=== PATIENT | female | born 1970 | race Hispanic/Latino ===

== ENCOUNTER 2020-01-25 19:35 | Observation (INO) | payer OTHER, SELFPAY ==
[2020-01-25] MEDS ORDERED: HYDROcodone/Acetaminophen 10/325 mg Tablet PO PRN (20:47)
[2020-01-25] MEDS ORDERED: Morphine 4 MG/ML VIAL SLOW IVP PRN (20:47)
[2020-01-25] MEDS ORDERED: Senokot S 8.6-50 MG TAB PO PRN (20:51)
[2020-01-25] MEDS ORDERED: Acetaminophen 325 MG TAB PO PRN (20:51)
[2020-01-25] MEDS ORDERED: Acetaminophen 650 MG Suppository PR PRN (20:51)
[2020-01-25] MEDS ORDERED: Dextrose 5% in Water 1,000 ML IV PRN (20:52)
[2020-01-25] MEDS ORDERED: HumaLOG 300 UNITS/3 ML VIAL SC PRN ×2 (20:52)
[2020-01-25] MEDS ORDERED: Dextrose 50% Abboject 50 ML SYRINGE SLOW IVP PRN (20:52)
[2020-01-25] MEDS ORDERED: Famotidine 20 MG TAB PO SCH (22:00)
[2020-01-25 22:20] VITALS: BMI 27.3
[2020-01-25] MEDS ORDERED: Ketorolac Tromethamine 30 MG/ML VIAL IVP SCH (23:59)
[2020-01-26] MEDS ORDERED: Ketorolac Tromethamine 30 MG/ML VIAL IVP SCH (00:15)
--- NOTE | 2020-01-26 00:27 | PDOC.HHP ---
Hospitalist HPI - History of Present Illness Right flank pain History of Present Illness: Patient presented to the ED today with complaints of left flank pain that has been persisting for the last 2 weeks and gradually worsening. She has had more frequent chills and occasionally febrile at home. States she was told in the past that she had a kidney stone but never did anything for it. Since then she has had occasional left flank pain with associated fever/chills that come and goes on its own. Recently however the pain has been more severe/persistent. She was seen for follow-up of her diabetes 2 weeks ago and told she had blood in the urine. She has not noted in [place] hematuria. Reports having a renal ultrasound 01/17/2020 and told she had a stone which she knew from prior imaging. The last medication she received as Toradol 30 mg IV which she states has made her drowsy but has taken her pain down to a 2/10 in severity. The pain is non-radiating. She denies any associated nausea or vomiting. All other review of systems are negative apart from those mentioned above in HPI. ED COURSE: Today she presented to [place] [facility]. She states her pain was initially a 9/10 in severity. She was hypotensive in the ED with systolic BP ranging from 89-112 and DBP 49-67. She received 2 L of NS and 15 mg of Toradol IV. She had a CT stone protocol done showing partial/intermittent obstruction at a 1.8cm right renal pelvis calculus. Also present was a hemorrhagic right ovarian cyst measuring 3.5 cm and hepato-steatosis. Diverticulosis without diverticulitis. UA showed 100 protein, 500 glucose, large blood, small leukocyte esterase, >50 RBC, 21-50 WBC, 4-6 squamous epithelial cells. WCC 7.3, Hgb 12.8, Hct 39.7, Platelets 653. K+ 3.6, BUN 20, Creat 0.76, GFR 81. LFTs normal. Lipase normal. Serum test negative. PAST MEDICAL HISTORY: 1. Nephrolithiasis. 2. Diabetes mellitus. 3. Hypertriglyceridemia, controlled with diet. 4. Diverticulitis. PAST SURGICAL HISTORY: Cholecystectomy. SOCIAL HISTORY: Fully independent. Denies any tobacco use, alcohol consumption or drug use. She did smoke previously. FAMILY HISTORY: Noncontributory. ALLERGIES: No known drug allergies. CURRENT MEDICATIONS: 1. Metformin. 2. Glipizide. 3. Lisinopril. (states this is not for hypertension, but to protect her kidneys). Hospitalist ROS - Medication Medications: Active Medications Generic Name Dose Route Start Last Admin Trade Name Leo PRN Reason Stop Dose Admin Insulin Human Lispro 0 units 01/25/20 20:52 01/25/20 21:56 Humalog 300 Units/3 Ml Vial SC 2 unit .BEDTIME SLIDING SC PRN Administration Bedtime Correctional Scale - Exam General Appearance: NAD, awake alert General - other findings: VS: Temp 98, HR 86, BP 102/62, RR 16, O2 sat 97% on RA. Eye: PERRL, anicteric sclera ENT: normocephalic atraumatic, moist mucosa Neck: supple, symmetric, no lymphadenopathy Heart: RRR, normal peripheral pulses Respiratory: CTAB, no wheezes, no rales, normal chest expansion Gastrointestinal: soft, non-distended, normal bowel sounds, no guarding, tender to palpation (right flank) Extremities: no edema Skin: normal turgor, no lesions, no rashes Neurological: cranial nerve grossly intact, normal sensation to touch, no weakness, no focal deficits Musculoskeletal: normal tone, normal strength, no muscle wasting Psychiatric: normal affect, normal behavior, A&O x 3 Psychiatric - other findings: sleepy but woken easily and answering questions. Stayed awake. Hospitalist Results - Radiology Interpretation CT scan - abdomen Status: report reviewed by me Hospitalist H&P A/P - Problem (1) Right nephrolithiasis Code(s): N20.0 - CALCULUS OF KIDNEY Status: Acute Assessment and Plan: Patient discussed with Dr. Kumar, per ED, and recommended admission with plans for ureteral placement in the AM. Monitor renal function. Pain free at present. Keep NPO after midnight. (2) Hypotension Status: Acute Assessment and Plan: Start IV fluids at 75 mLs/Hr NS. Monitor BP. (3) Right flank pain Code(s): R10.9 - UNSPECIFIED ABDOMINAL PAIN Status: Acute Assessment and Plan: Significantly improved. Continue Toradol. Decreased from 30 mg to 15 mg IV, given complaints of drowsiness. (4) Diabetes mellitus Code(s): E11.9 - TYPE 2 DIABETES MELLITUS WITHOUT COMPLICATIONS Status: Chronic Assessment and Plan: Monitor glucose. ISS initiated. (5) Hypertriglyceridemia Code(s): E78.1 - PURE HYPERGLYCERIDEMIA Status: Chronic Assessment and Plan: Low fat diet once cleared to eat. - Plan Plan: GI prophylaxis with famotidine. FULL CODE STATUS Surrogate decision maker is her sister Avani Shepherd.
[2020-01-26] MEDS ORDERED: Sodium Chloride 0.9% 1,000 ML IV SCH (00:30)
[2020-01-26] MEDS: Ketorolac Tromethamine 30 MG/ML VIAL IVP SCH ×2 (05:27→12:30)
[2020-01-26 05:42] LABS: #Eosinphils 0.1 thou/uL (0.0-0.7); #Lymphocytes 2.2 thou/uL (1.20-3.40); #Monocytes 0.5 thou/uL (0.11-0.59); #Neutrophils 2.3 thou/uL (1.40-6.50); %Eosinophils 2.9 % (0.0-10.0); %Lymphocytes 43.1 % (21.0-51.0); %Neutrophils 44.1 % (42.0-75.0); Hemoglobin 11.3 g/dL (12.0-16.0); Mean Corpuscular HGB CONC 37.5 g/dL (32.0-36.0); Mean Corpuscular Hemoglobin 37.8 pg (27.0-31.0); Mean Platelet Volume 9.2 fL (7.4-10.4); Platelet Count 238 thou/uL (130-400); RBC Distribution Width 13.6 % (11.5-14.5); White Blood Cell (WBC) Count 5.1 thou/uL (4.8-10.8)
[2020-01-26 08:00] LABS: Calcium 7.9 mg/dL (7.8-10.44); Chloride 109 mmol/L (98-107); Sodium 137 mmol/L (136-145)
[2020-01-26 08:01] LABS: Glucose 140 mg/dL (70-105)
[2020-01-26 08:02] LABS: Anion Gap 10 mmol/L (10-20); Carbon Dioxide 22 mmol/L (22-29)
[2020-01-26 08:04] LABS: Calc. Creatinine Clearance 123 mL/min (70-130); Estimated GFR-MDRD Greater than 90
[2020-01-26 08:05] LABS: BUN (Urea Nitrogen) 15 mg/dL (7.0-18.7)
--- NOTE | 2020-01-26 08:05 | CON ---
DATE OF CONSULTATION: 01/26/2020 CHIEF COMPLAINT: Right flank pain. REASON FOR CONSULTATION: Right renal stone. HISTORY OF PRESENT ILLNESS: This is a 49-year-old female who developed acute onset severe right-sided flank pain over the last 24 hours or so. This reached up to 10/10, associated with nausea, but no vomiting. She was seen at her local emergency room, where a CT scan showed a large right renal stone with hydronephrosis. She was then transferred to [place] for management. In speaking with her this morning, she reports that her pain has been intermittent overnight; however, this morning seems to be worsening again. She does tell me that she has been having intermittent right-sided flank pain much less severe over the past several months. This morning, she denies dysuria, gross hematuria, fevers, or nausea. No prior history of stones. PAST MEDICAL HISTORY: Diabetes, elevated triglycerides, and diverticulitis. PAST SURGICAL HISTORY: Cholecystectomy. SOCIAL HISTORY: From [place], lives in [place] with her son, nonsmoker, no substance abuse. FAMILY HISTORY: Reviewed, noncontributory. No history of stones. ALLERGIES: NO KNOWN DRUG ALLERGIES. CURRENT MEDICATIONS: 1. Metformin. 2. Glipizide. 3. Lisinopril. REVIEW OF SYSTEMS: A 12-point review of systems is negative except as mentioned in my HPI. PHYSICAL EXAMINATION: VITAL SIGNS: Afebrile, vitals stable. No urine output recorded yet. GENERAL: No acute distress. Conversant. HEENT: Head, normocephalic and atraumatic. Extraocular movements intact. Sclerae nonicteric. NECK: Supple. Trachea midline. Unlabored breathing. Symmetric chest expansion. HEART: Regular rate and rhythm. ABDOMEN: Soft, nontender, and nondistended. No flank tenderness. No suprapubic tenderness. SKIN: Warm and dry. EXTREMITIES: No peripheral edema or cyanosis. NEUROLOGIC: Alert and oriented x3. PSYCHIATRIC: Normal mood and affect. LABORATORY DATA: Reviewed. White count this morning is 5.1. BMP has not yet returned this morning. Creatinine yesterday was 0.76. test negative. COVID-19 pending. IMAGING DATA: I personally reviewed her CT scan, which does show a large 1.8 cm right renal pelvis stone. ASSESSMENT AND PLAN: Right renal pelvis stone, hydronephrosis. Given that her pain was poorly controlled in the emergency room, she has been transferred to [place] and is having intermittent pain still. We discussed her options and have decided together to proceed to the operating room for ureteroscopy with laser lithotripsy of this stone. I explained the procedure in detail including the expected postoperative course and the risks of bleeding, infection, pain, and inability to access or clear the stone entirely, possible need for a second procedure to completely clear the stone, formation of ureteral stricture or ureteral injury during the procedure. She does understand this is a very large stone and could require two trips to the operating room to treat properly. I also made sure that she understands that she will have a stent afterwards that will have to be removed. All of her questions were answered. Job ID: [id number] [facility]ICAL CENTERJohn
[2020-01-26] MEDS ORDERED: Famotidine 20 MG TAB PO SCH (09:00)
[2020-01-26] MEDS ORDERED: Lisinopril 5 MG TAB PO SCH (09:00)
[2020-01-26] MEDS ORDERED: Ondansetron PF 4 MG/2 ML Vial ONE (11:29)
[2020-01-26] MEDS ORDERED: Rocuronium Bromide 10 MG/ML (10ML VIAL) ONE (11:29)
[2020-01-26] MEDS ORDERED: Glycopyrrolate 0.2 MG/ML 5 ML SYRINGE ONE (11:29)
[2020-01-26] MEDS ORDERED: Lidocaine 1% PF 5 ML VIAL ONE (11:29)
[2020-01-26] MEDS ORDERED: Dexamethasone 20 MG/5 ML VIAL ONE (11:29)
[2020-01-26] MEDS ORDERED: PROPOFOL 200 MG/20 ML VIAL ONE (11:29)
[2020-01-26] MEDS ORDERED: Iothalamate Meglumine 60% 50 ML VIAL FS ONE (12:38)
[2020-01-26 12:57] LABS: SARS-CoV-2 MS2 Positive; SARS-CoV-2 N Gene Negative; SARS-CoV-2 S Gene Negative; SARS-CoV-2 by NAA Not Detected (NotDetected); SARS-CoV-2 orf1ab Negative
[2020-01-26] MEDS ORDERED: Fentanyl 100 MCG/2 ML VIAL ONE (13:34)
[2020-01-26] MEDS ORDERED: Midazolam HCl 2 mg/2 ml Vial ONE (13:34)
[2020-01-26] MEDS ORDERED: Ondansetron HCl/PF 4 MG/2 ML Vial IVP PRN (14:53)
[2020-01-26] MEDS ORDERED: Promethazine HCl 25 MG/ML VIAL IM PRN (14:53)
[2020-01-26] MEDS ORDERED: Promethazine HCl 25 MG/ML VIAL SLOW IVP PRN (14:53)
--- NOTE | 2020-01-26 14:59 | RAD ---
EXAM: RETROGRADE PYELOGRAM 01/26/20 HISTORY: Right flank pain. COMPARISON: 01/25/20 CT. FINDINGS: Single portable fluoroscopic spot image is performed. This demonstrates a right ureteral stent in luis e ce. Fairly large irregular right sided renal calculus. IMPRESSION: Large right renal calculus. Right ureteral stent in place. POS: RRE
[2020-01-26 16:13] VITALS: BP 130/72; TEMP 97.4
--- NOTE | 2020-01-26 19:29 | OP ---
DATE OF PROCEDURE: 01/26/2020 PREOPERATIVE DIAGNOSIS: Right renal stone. POSTOPERATIVE DIAGNOSIS: Right renal stone. PROCEDURES PERFORMED: Right ureteroscopy with laser lithotripsy, retrograde pyelogram, intraoperative interpretation of radiologic imaging, 6 x 24 double-J ureteral stent placement. ANESTHESIA: General. COMPLICATIONS: None. ESTIMATED BLOOD LOSS: Minimal. SPECIMEN: None. DESCRIPTION OF PROCEDURE: After informed consent, the patient was taken to the operating room, transferred to the table under her own power. Anesthesia was established. A time-out was performed showing correct patient, site, and procedure. Preoperative antibiotics were administered. She was prepped and draped in the lithotomy position. The rigid cystoscope was advanced through the urethra into the bladder. The bladder was systematically examined noting no mucosal abnormalities. The right ureter was cannulated with a wire, which was passed up to the level of the renal pelvis under fluoroscopic guidance. The large renal pelvis stone was seen easily under fluoroscopy. I then passed an access sheath over the wire into the proximal ureter under fluoroscopic guidance and a retrograde pyelogram performed through this showing minimal hydronephrosis and no filling defects other than the large stone in the renal pelvis. The flexible ureteroscope was passed through the access sheath into the renal pelvis, where the stone was quickly encountered. A 273 micron laser fiber was used to dust the stone, which took about 20-25 minutes. Upon completion, visualization was significantly impaired due to the stone dust. Under fluoroscopy, there appeared to be an area of a large stone fragment. However, upon directing my scope in this area, this appeared to be simply a collection of small stone fragments which dissipated and then recollected in nearby locations as I removed the scope. There were no clinically significant stone fragments that I was able to identify at the end of the case. The scope with access sheath were then withdrawn leaving a wire in place and a 6 x 24 double-J ureteral stent without strings was placed over the wire with a curl in the kidney and curl in the bladder. The patient was then awoken from anesthesia, transferred back to her hospital bed, and taken to PACU in stable condition, where she will discharge home upon recovery. Job ID: [id number]
--- NOTE | 2020-01-27 01:42 | DIS ---
DATE OF ADMISSION: 01/25/2020 DATE OF DISCHARGE: 01/26/2020 PRIMARY CARE PROVIDER: Unknown. DISCHARGE DIAGNOSES: 1. Large right renal calculus. 2. Status post ureteroscopy and laser lithotripsy of the stone. CONDITION OF PATIENT ON THE DAY OF DISCHARGE: Stable. I assessed Ms. Knight on the day of discharge. She denies any abdominal pain. Vital signs are stable. S1 and S2 are heard, regular. Lungs are clear to auscultation bilaterally. POST-ACUTE CARE FOLLOWUP: With Urology Dr. Kumar in 3 weeks. CONSULTATIONS DURING THIS HOSPITALIZATION: Urology, Dr. Kumar. DISCHARGE MEDICATIONS: As prescribed by Dr. Kumar and sent to her pharmacy. HOSPITAL COURSE: Ms. Knight is a pleasant 49-year-old lady who was admitted to [facility] on January 25, 2020, for a large right ureteral calculus. She also had a hemorrhagic right ovarian cyst of 3.5 cm. She was seen by Urology Service. She was recommended for laser lithotripsy and ureteroscopy as well as possible ureteric stent placement. She underwent the procedure on January 26, 2020, and was discharged by Urology Service after transmitting her discharge medications to her pharmacy. DISCHARGE DESTINATION: Home. TIME SPENT: Time spent coordinating this discharge: 15 minutes. Job ID: [id number]
== END 2020-01-26 17:03 | disposition home or self-care (01) ==
LOC: INTOOBSV 19:35 → SJJU 19:35
PROVIDERS: ADMIT Student in an Organized Health Care Education/Training Program; ATTEND Student in an Organized Health Care Education/Training Program
PROC: 0TC38ZZ Extirpation of Matter from Right Kidney Pelvis, Via Natural or Artificial Opening Endoscopic (ICD-10-PCS; principal; 2020-01-26)
PROC: 0T768DZ Dilation of Right Ureter with Intraluminal Device, Via Natural or Artificial Opening Endoscopic (ICD-10-PCS; 2020-01-26)
DX: N13.2 Hydronephrosis with renal and ureteral calculous obstruction (principal); N83.201 Unspecified ovarian cyst, right side; K76.0 Fatty (change of) liver, not elsewhere classified; K57.90 Diverticulosis of intestine, part unspecified, without perforation or abscess without bleeding; E11.9 Type 2 diabetes mellitus without complications; E78.1 Pure hyperglyceridemia; Z79.84 Long term (current) use of oral hypoglycemic drugs; Z79.899 Other long term (current) drug therapy; Z20.828 Contact with and (suspected) exposure to other viral communicable diseases
CPT/HCPCS: 36415; 36416; 74420; 80048; 83735; 84145; 85025; 87635; 96374; 96376; G0378; J1885; J2250; J3010; U0003